=== PATIENT | male | born 1975 | race Caucasian/White ===

== ENCOUNTER → 2022-03-04 15:04 | Outpatient (CLI) | payer MEDICARE, MEDICAID, SELFPAY ==
--- NOTE | ~2022-03-04 | XR_ITS ---
EXAM: XR lumbar spine min 4V DATE: 03/04/2022 15:33 HISTORY: twisting injury 1 week ago low back pain . COMPARISON: None available. FINDINGS: Osteopenia. Cholecystectomy clips. 5 nonrib-bearing lumbar-type vertebral bodies. Pedicles intact. Exaggerated lumbar lordosis. 2 mm retrolistheses at L2-3, L3-4, and L4-5 that remain stable i n flexion and extension, noting that range of motion is limited in extension. Vertebral body heights preserved. Mild disc space narrowing at L2-3 and L3-4. Multilevel marginal osteophytosis. Multilevel mild facet sclerosis. No fracture or dislocation. IMPRESSION: Multilevel grade 1 retrolistheses. No dynamic listhesis detected. Multilevel mild degener ative disc disease and facet arthropathy. Reviewed, dictated and finalized at location K. IMPRESSION: Multilevel grade 1 retrolistheses. No dynamic listhesis detected. M ultilevel mild degenerative disc disease and facet arthropathy.
== END ==
PROVIDERS: PCP Family Medicine; Visit Provider Nurse Practitioner Family
DX: M54.16 Radiculopathy, lumbar region (principal); M51.36 Other intervertebral disc degeneration, lumbar region
CPT/HCPCS: 72110

== ENCOUNTER 2024-12-25 16:21 | Outpatient (CLI) | payer MEDICARE, MEDICAID, SELFPAY ==
--- NOTE | ~2024-12-25 | XR_ITS ---
XR lumbar spine min 4V 12/25/2024 16:41 Indication: Lumbar radicular pain Procedure: 5 views lumbar spine Comparison: 03/04/2022 Findings: Vertebral body heights are maintained. There is disc narrowing at L3-4, L4-5 and L5-S1. The re is mild lower lumbar facet hypertrophy. No acute fracture, subluxation or spondylolisthesis. Impression: 1: No acute bone or joint abnormality. 2: Mild lumbar spondylosis. Reviewed, dictated and finalized at location B. Impression: 1: No acute bone or joint abnormality. 2: Mild lumbar spondylosis.
== END 2024-12-25 16:22 | disposition home or self-care (01) ==
LOC: MICIMG 16:26
PROVIDERS: PCP Family Medicine; Visit Provider Nurse Practitioner Family
DX: M47.816 Spondylosis without myelopathy or radiculopathy, lumbar region (principal)
CPT/HCPCS: 72110